=== PATIENT | male | born 1960 | race Caucasian/White ===

== ENCOUNTER 2020-06-12 07:32 | Outpatient (REF) | payer BC, SELFPAY ==
[2020-06-12 08:16] LABS: MANUAL DIFF FLAG NO
[2020-06-12 08:20] LABS: Basophils Percent Auto 0.8 % (0-2); Eosinophils Absolute Auto 0.1 X10*3/uL (0.0-0.4); Eosinophils Percent Auto 2.4 % (0-4); Hematocrit 43.6 % (42-52); Hemoglobin 15.1 g/dl (14.0-18.0); Imm Gran Abs Auto 0.01 X10*3/uL (0.00-0.03); Imm Gran Pct Auto 0.3 % (0.0-0.4); Lymphocytes Absolute Auto 1.5 X10*3/uL (1.2-4.9); Lymphocytes Percent Auto 40.2 % (20-40); Mean Corpuscular HGB Conc 34.6 g/dl (31.0-36.0); Mean Corpuscular Hemoglobin 33.3 pg (27.0-33.0); Mean Platelet Volume 8.6 fL (9.4-12.4); Monocytes Absolute Auto 0.6 X10*3/uL (0.1-1.2); Neutrophils Absolute Auto 1.6 X10*3/uL (2.0-8.3); Neutrophils Percent Auto 41.3 % (45-73); Platelet Count 289 X10*3/uL (160-400); Red Blood Count 4.54 X10*6/uL (4.60-5.80); White Blood Count 3.8 X10*3/uL (4.8-10.8)
[2020-06-12 08:53] LABS: Alanine Aminotransferase 31 U/L (0-40); Albumin Level 4.4 g/dL (3.5-5.0); Alkaline Phosphatase 71 U/L (39-117); Anion Gap 11 (12-20); Aspartate Amino Transferase 29 U/L (5-37); Bilirubin Total 1.1 mg/dL (0.0-1.0); Blood Urea Nitrogen 16 mg/dL (9-16); Calcium 8.9 mg/dL (8.4-10.2); Carbon Dioxide 32 mmol/L (22-29); Chloride 98 mmol/L (96-108); Cholesterol 179 mg/dL; Estimated Glomerular Filt Rate > 60; Glucose Random 94 mg/dL (60-115); HDL Cholesterol 86 mg/dL; LDL Cholesterol Calculated 83 mg/dl; Potassium 4.6 mmol/L (3.3-5.1); Sodium 136 mmol/L (135-145); Total Protein 7.8 g/dL (6.5-8.0); Triglycerides 52 mg/dL
[2020-06-12 09:06] LABS: Prostate Specific Antigen 3.57 ng/mL (<0.05-4.0)
== END 2020-06-12 07:33 | disposition home or self-care (01) ==
LOC: HO.LAB 07:32
PROVIDERS: PCP Family Medicine; Visit Provider Family Medicine
DX: Z00.00 Encounter for general adult medical examination without abnormal findings (principal); E78.5 Hyperlipidemia, unspecified; I10 Essential (primary) hypertension
CPT/HCPCS: 36415; 80053; 80061; 84153; 85025

== ENCOUNTER 2021-07-18 06:08 | Outpatient (REF) | payer BC, SELFPAY ==
[2021-07-18 06:19] LABS: MANUAL DIFF FLAG NO
[2021-07-18 07:17] LABS: Basophils Percent Auto 0.4 % (0-2); Eosinophils Absolute Auto 0.1 X10*3/uL (0.0-0.4); Eosinophils Percent Auto 2.3 % (0-4); Hematocrit 43.6 % (42.0-52.0); Hemoglobin 15.1 g/dl (14.0-18.0); Imm Gran Abs Auto 0.01 X10*3/uL (0.00-0.03); Imm Gran Pct Auto 0.2 % (0.0-0.4); Lymphocytes Percent Auto 42.4 % (20-40); Mean Corpuscular HGB Conc 34.6 g/dl (31.0-36.0); Mean Corpuscular Hemoglobin 32.3 pg (27.0-33.0); Mean Corpuscular Volume 93.4 fL (80.0-98.0); Mean Platelet Volume 8.9 fL (9.4-12.4); Monocytes Absolute Auto 0.7 X10*3/uL (0.1-1.2); Neutrophils Absolute Auto 1.9 x10*3/uL (2.0-8.3); Neutrophils Percent Auto 39.7 % (45-73); Platelet Count 297 X10*3/uL (160-400); Red Blood Count 4.67 X10*6/uL (4.60-5.80); Red Cell Distribution Width 12.5 % (11.0-16.0); White Blood Count 4.7 X10*3/uL (4.8-10.8)
[2021-07-18 07:47] LABS: Alanine Aminotransferase 26 U/L (0-40); Albumin Level 4.2 g/dL (3.5-5.0); Alkaline Phosphatase 67 U/L (39-117); Anion Gap 12 (12-20); Aspartate Amino Transferase 31 U/L (5-37); Bilirubin Total 0.9 mg/dL (0.0-1.0); Blood Urea Nitrogen 16 mg/dL (9-16); Calcium 9.6 mg/dL (8.4-10.2); Carbon Dioxide 29 mmol/L (22-29); Chloride 97 mmol/L (96-108); Cholesterol 194 mg/dL; Estimated Glomerular Filt Rate > 60; Glucose Random 98 mg/dL (60-115); HDL Cholesterol 74 mg/dL; LDL Cholesterol Calculated 107 mg/dl; Sodium 134 mmol/L (135-145); Total Protein 7.3 g/dL (6.5-8.0); Triglycerides 69 mg/dL
== END 2021-07-18 06:09 | disposition home or self-care (01) ==
LOC: HO.LAB 06:08
PROVIDERS: PCP Family Medicine; Visit Provider Family Medicine
DX: Z00.00 Encounter for general adult medical examination without abnormal findings (principal); E78.5 Hyperlipidemia, unspecified; I10 Essential (primary) hypertension
CPT/HCPCS: 36415; 80053; 80061; 85025

== ENCOUNTER 2024-08-27 06:24 | Day surgery (SDC) | payer BC, SELFPAY ==
--- OUTSIDE RECORDS SUMMARY | 2024-08-19 14:01 | XMS_ITS ---
Author Organization [facility] Address [address] [place] [address] Care Team Providers Care Server Software Engineer Name Role Phone Ruddy Fisher Primary Care Provider Sumit Diaz Unavailable [phone] Allergies Allergen (clinical drug ingredient) Drug/Non Drug Allergy documented on EMR Reaction Allergy Type Onset Date Status mild hay fever (uncoded) Unknown Allergy Active REASON FOR VISIT patient presents today for colon recall Medications Medication SIG (Take, Route, Frequency, Duration) Notes Start Date End Date Status Multi Vitamin/Minerals - as directed Ora lly once a day Active Fish Oil 1000 MG 1 capsule Orally Onc e a day for 30 day(s) Active Atorvastatin Calcium 20 MG 1 tablet Oral ly Once a day for 30 day(s) Active Lisinopril Active Vital Signs Blood pressure systolic 111 mm Hg 05/14/19 25 Blood pressure diastolic 11 mm Hg 025 Height 67.5 in 05/13/2024 Weight 202 lbs 05/13/2024 BMI 31.17 kg/m2 05/13/2024 Procedures Procedure Date Ordered Date Performed Result Body Sit e COLONOSCOPY 05/13/2024 N/A Encounters Encounter Location Date Provider Diagnosis [facility] [address] [place] [address] 05/13/2024 Sumit Burton History of adenomato us polyp of colon Z86.010 ; Preprocedural examination Z01.818 and Encounter for screening for malignant neoplasm of colon Z12.11 Assessments Encounter Date Diagnosis (ICD Code) Assessment Notes Treatment Notes Treatment Clinical Notes Section Notes 05/13/2024 History of adenomatous polyp of colon (ICD-10 - Z86.010) Stop the fish oil for a week before the colonoscopy 05/13/2024 Preprocedural examination (ICD-10 - Z01.818) 05/13/2024 Encounter for screening for malignant neoplasm of colon (ICD-10 - Z12.11) Plan Of Treatment Treatment Notes Assessment Notes History of adenomatous polyp of colon St op the fish oil for a week before the colonoscopy Pending Test Test Name Order Date COLONOSCOPY 05/13/2024 Next Appt Details Follow Up: prn, Reason: Provider Name:Sumit Burton , 08/27/2024 07:30:00 AM, [address] [place] [address] , [place], [place], [id number], Progress Notes * СВЕТЛАНА BETANCOURTDOB: 1960 (64 yo M)Acc No.[id number]:05/13/2024 Progress Notes Patient:?СВЕТЛАНА BETANCOURT CASSIE Provider:?Sumit Burotn MD :1960???Age:64 Y???Sex:Male Emmanuel e:05/13/2024 Address:[address] [place] [id number] Pcp:Ruddy Fisher Subjective: * Chief Complaints: * ???Patient presents today fo r colon recall * Medical History:? * Surgical History:?Had surger y on the right lung as a child for pleurisy Hernia repair upper abdominal with a mesh * Hospitalization/Major Diagno stic Procedure:?No Hospitalization History. * Family History:?Father: dece ased, diagnosed with HTN (hypertension).?Mother: .? No colorectal cancer. * Social History:?Tobacco Use:?Tobacco Use/Smoking?Are you a: nonsmoker.?Drugs/Alcohol:?Alcohol Screen?Points: 3, Interpretation: Negative.?Miscellaneous:?Marital status: . 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 ???Nonsmoker; occasional alcohol. * Medications:?TakingLisinopri l Atorvastatin Calcium 20 MG Tablet 1 tablet Orally Once a day Fish Oil 1000 MG Capsule 1 capsule Orally Once a day Multi Vitamin/Minerals - Tablet as directed Orally once a day Taking Lisinopril Taking Atorvastatin Calcium 20 MG Tablet 1 tablet Orally Once a day Taking Fish Oil 1000 MG Capsule 1 capsule Orally Once a day Taking Multi Vitamin/Minerals - Tablet as directed Orally once a day DiscontinuedhydroCHLOROthiazide 12.5 MG Capsule 1 capsule in the morning Orally Once a day Medication List reviewed and reconciled with the patientDiscontinued hydroCHLOROthiazide 12.5 MG Capsule 1 capsule in the morning Orally Once a day Medication List reviewed and reconciled with the patient * Allergies:?mild hay feveryes [Allergies Verified] Objective: * Vitals:?Wt:202lbs, Ht: 67.5 in, BMI:31.17Index, BP:111/11mm Hg, Wt-k.63. Assessment: * Assessment: 1.?Preprocedural examination - Z01.818 (Primary)???2.?History of adenomatous polyp of colon - Z86.010???3.?Encounter for screening for malignant neoplasm of colon - Z12.11??? Plan: * Treatment: Notes: Stop the fish oil for a week before the colonoscopy??2.?Encounter for screening for malignant neoplasm of colon?Procedure: COLONOSCOPY* with MACsched for 08/27/24 at 7:30 ammiralax * Procedure Codes:?80004 DIAGN OSTIC [id number] COLORECTAL CA SCREEN DOC [id number] TOBACCO [id number] RCMND FLW-UP 10 YRS DOCD * Preventive Medicine:? ??Counseling:?Care goal follow-up plan:?Above Normal BMI Follow-up?Giving encouragement to exercise,?BMI management provided?Yes.? * Follow Up:?prn * * Sign off status: Completed true * Provider:?Smuit Burton MD Date:? 025 Generated for Sujit patterson/[place]/Mariaelena on:?08/19/2024 02:01 PM EDT
[2024-08-25 11:34] VITALS: BMI 31.2
--- NOTE | 2024-08-26 09:58 | HO.ANESPROP2 ---
Documented by User: Adia Vidal NP 08/26/24 09:59 HPI - Anesthesia Eval Consult details Narrative: 64yo M for Colonoscopy [facility] Past Medical History Medical History Prostate cancer HLD (hyperlipidemia) HTN (hypertension) Seasonal allergies Surgical History Surgical History Hx of colonoscopy (2013) Hx of hernia repair History of lung surgery Social History Social History Patient Tobacco Use Status: Never used Tobacco Have you been hit, kicked, punched, or otherwise hurt by someone within the past year? If so, by whom?: No Are you DNR?: No Advance Directives: No Advance Directives Information Provided: Yes Meds Allergies Allergy/AdvReac Type Severity Reaction Status Date / Time No Known Allergies Allergy Verified 08/26/24 10:00 Home Medications ?Medication ?Instructions ?Recorded ?Confirmed ?Last Taken ?Type atorvastatin 20 mg tablet 20 mg PO DAILY 08/25/24 08/25/24 Unknown History lisinopril 5 mg tablet 5 mg PO DAILY 08/25/24 08/25/24 Unknown History multivitamin 1 tab PO DAILY 08/25/24 08/25/24 Unknown History omega 0-lxj-zqw-fish oil 1,000 mg 1 cap PO DAILY 08/25/24 08/25/24 08/20/24 History (120 mg-180 mg) capsule (Fish Oil) Exam Height,Weight and Vital Signs: Height 5 ft 7.5 in Weight 91.626 kg Assessment and Plan Assessment Anesthesia Assessment: Chart Reviewed Documented by User: Frakn Mobley MD 08/27/24 07:49 [facility] Past Medical History Medical History Prostate cancer HLD (hyperlipidemia) HTN (hypertension) Seasonal allergies Cognitive capacity: good Functional capacity: independent ambulation Family History Family history of problems with anesthesia: No Surgical History Surgical History Hx of colonoscopy (2013) Hx of hernia repair History of lung surgery History of Problems with Anesthesia: No Social History Social History Patient Tobacco Use Status: Never used Tobacco Have you been hit, kicked, punched, or otherwise hurt by someone within the past year? If so, by whom?: No Are you DNR?: No Advance Directives: No Advance Directives Information Provided: Yes Meds Allergies Allergy/AdvReac Type Severity Reaction Status Date / Time No Known Allergies Allergy Verified 08/26/24 10:00 Home Medications ?Medication ?Instructions ?Recorded ?Confirmed ?Last Taken ?Type atorvastatin 20 mg tablet 20 mg PO DAILY 08/25/24 08/25/24 Unknown History lisinopril 5 mg tablet 5 mg PO DAILY 08/25/24 08/25/24 Unknown History multivitamin 1 tab PO DAILY 08/25/24 08/25/24 Unknown History omega 6-zuc-nab-fish oil 1,000 mg 1 cap PO DAILY 08/25/24 08/25/24 08/20/24 History (120 mg-180 mg) capsule (Fish Oil) Exam Exam Date and Time: 08/27/2024 Airway Mallampati Class: II TM Dist: >3cm Neck ROM: Full Loose/Missing/Broken Teeth: No Heart: rrr Lungs: cts Assessment and Plan Assessment Anesthesia Assessment: Anesthesia Plan Discussed Final Anesthetic Review Family History of Problems with Anesthesia: No History of Problems with Anesthesia: No NPO: Yes ASA Class: II Final Preanesthetic Review: No Changes in Pt Med Stat, Meds/Allgs Chart Reviewed, Consent Obtained/Reviewed and Anes Risks/Benef Reviewed Patient Risk: Low Procedure Risk: Low Anesthetic Plan Anesthetic Plan: MAC: Disposition: Standard PACU
[2024-08-27 06:32] VITALS: BP 170/89; PULSE 72; RESP 20; TEMP 36.9; O2SAT 97; BMI 31.2
[2024-08-27] MEDS: Lactated Ringers 1,000 ML 100 ML IVCONT (06:41)
[2024-08-27 08:35] VITALS: BP 122/89; PULSE 67; RESP 16; TEMP 36.8; O2SAT 95
--- NOTE | 2024-08-27 08:41 | PM.OP ---
Brief Operative Note Date of Service: 08/27/24 Pre-op diagnosis: Screening Post-op diagnosis: other (Polyp) Procedure: Colonoscopy to the cecum and TI with cold snare polypectomy Surgeon: Sumit Burton MD Anesthesia: MAC Was an Warble Saw Operator used for this Procedure?: No Estimated blood loss (mL): 2.0 Pathology: other (A. Ascending colon polyps) Condition: stable Disposition: PACU
[2024-08-27 08:49] VITALS: BP 140/95; PULSE 67; RESP 16; TEMP 36.8; O2SAT 95
--- NOTE | 2024-08-27 09:08 | OP_ITS ---
DATE OF SERVICE: 08/27/2024 SURGEON: Sumit Burton MD INDICATIONS: The patient presents for evaluation of colorectal cancer screening and personal history of tubular adenoma of the colon. Full consent obtained from him for this, including risks of bleeding and perforation. PREOPERATIVE DIAGNOSIS: Colorectal cancer screening. POSTOPERATIVE DIAGNOSIS: PROCEDURE PERFORMED: Colonoscopy to cecum and terminal ileum with cold snare polypectomy. ESTIMATED BLOOD LOSS: COMPLICATIONS: ANESTHESIA: Medications, used, monitored anesthesia care. ASSISTANTS: SPECIMENS: POSTOPERATIVE DIAGNOSES: Colorectal cancer screening, colon polyp, diverticulosis, internal hemorrhoids, and probable fibroepithelial polyp at the dentate line. DESCRIPTION OF PROCEDURE: The patient was placed in left lateral decubitus position. The digital rectal exam revealed no abnormalities. The [employer] video pediatric colonoscope was entered into the rectum and advanced easily to the cecum. Once in the cecum, I did identify normal-appearing cecal pouch, appendiceal orifice, and a normal-appearing ileocecal valve. The terminal ileum was cannulated and appeared normal. The scope was withdrawn back in the colon. The entire cecum and ileocecal valve appeared normal. The scope was slowly withdrawn assessing all mucosal surfaces carefully. Preparation was excellent. In the proximal ascending colon, there was a flat, but raised approximately 6 mm polyp, which was removed by cold snare polypectomy and then recovered by suction. The polypectomy site appeared clean, without any sign of residual polyp nor significant bleeding. I did not visualize any sign of other polyps, colitis, nor angiodysplasia. There was a mild amount of sigmoid diverticulosis. Once in the rectum, scope was retroflexed visualizing his internal hemorrhoids and what appeared to be the previously seen fibroepithelial polyp. The rectal mucosa appeared normal. Scope was straightened and withdrawn from the patient. He tolerated the procedure well and was returned to recovery area in stable condition. IMPRESSION: 1. Colon polyp. 2. Diverticulosis. 3. Internal hemorrhoids and probable fibroepithelial polyp at the dentate line. PLAN: The results of the pathology will be checked. I would recommend a repeat colonoscopy in 5 years. He was advised not to use any aspirin, NSAIDs, nor fish oil for 1 week. In regard to the internal hemorrhoids and what appeared to be the fibroepithelial polyp, he has been evaluated by Dr. Hawkins for this in the past and he did not feel any of that required surgery and the patient is asymptomatic in that regard. He will see me otherwise see me on a p.r.n. basis. MD JACKSON Delarosa/MURRAY / [id number] MTDD
== END 2024-08-27 09:06 | disposition home or self-care (01) ==
PROVIDERS: PCP Family Medicine; Visit Provider Internal Medicine
PROC: 0DJD8ZZ Inspection of Lower Intestinal Tract, Via Natural or Artificial Opening Endoscopic (ICD-10-PCS; CPT 45378; principal; 2024-08-27 07:30)
DX: Z12.11 Encounter for screening for malignant neoplasm of colon (principal); D12.2 Benign neoplasm of ascending colon; K57.30 Diverticulosis of large intestine without perforation or abscess without bleeding; K64.8 Other hemorrhoids; Z86.0100 Personal history of colon polyps, unspecified; I10 Essential (primary) hypertension; E78.5 Hyperlipidemia, unspecified; Z79.899 Other long term (current) drug therapy; Z79.02 Long term (current) use of antithrombotics/antiplatelets
CPT/HCPCS: 45385; 88305; J2704